=== PATIENT | female | born 1975 | race Two or more races ===

== ENCOUNTER 2024-08-23 16:06 | Emergency (ER) | payer OTHER ==
[~2024-08-23] VITALS: Ht 167.6 cm; Wt 69.9 kg
[2024-08-23] MEDS ORDERED: FAMOTIDINE/PF 20 MG in 0.9 % SODIUM CHLORIDE 8 ML IV PUSH STA (17:52)
[2024-08-23] MEDS ORDERED: KETOROLAC TROMETHAMINE 30 MG VIAL ONE (17:58)
[2024-08-23] MEDS ORDERED: FAMOTIDINE/PF 20 MG/2 ML VIAL ONE (17:58)
[2024-08-23] MEDS ORDERED: ONDANSETRON HCL 2 MG/ML VIAL ONE ×2 (17:58→18:04)
[2024-08-23] MEDS ORDERED: PIPERACILLIN/TAZOBACTAM SODIUM 3.375 GM VIAL IV ONE ×2 (17:58→18:00)
[2024-08-23] MEDS ORDERED: ONDANSETRON HCL 2 MG/ML VIAL IV ONE (18:00)
[2024-08-23] MEDS ORDERED: KETOROLAC TROMETHAMINE 30 MG VIAL IV ONE (18:00)
[2024-08-23 18:31] LABS: HEMATOCRIT 35.5 % (36.0-45.00); MEAN CORPUSCULAR HEMOGLOBIN 27.8 pg (27.00-32.0); MEAN CORPUSCULAR HGB CONC 33.9 g/dl (32.0-36.0); PLATELET COUNT 336 K/uL (150-450); RED BLOOD COUNT 4.33 M/uL (4.00-6.00); RED CELL DISTRIBUTION WIDTH 14.1 % (11.5-14.5)
[2024-08-23 18:44] LABS: POTASSIUM 3.69 mEq/L (3.5-5.1)
[2024-08-23 18:52] LABS: BILIRUBIN TOTAL 0.45 mg/dL (0.3-1.2); CALCIUM 9.3 mg/dL (8.5-10.1); CREATININE SERUM 0.76 mg/dL (0.55-1.02); GFR 81.57; GLOBULINA 4.5 G/DL (2.4-3.5); TOTAL PROTEIN 8.5 gm/dL (6.4-8.2)
[2024-08-23] MEDS ORDERED: DICLOFENAC SODI75 MG PO (22:49)
== END 2024-08-23 23:09 | disposition home or self-care (01) ==
LOC: ER 16:06
PROVIDERS: General Practice
DX: R10.32 Left lower quadrant pain (principal)